=== PATIENT | female | born 1955 | race Caucasian/White ===

== ENCOUNTER 2020-05-02 15:59 | Emergency (ER) | payer OTHER ==
[~2020-05-02] VITALS: Ht 167.6 cm; Wt 82.2 kg
--- NOTE | 2020-05-02 16:21 | NUR ---
MERISSA BALLESTEROS BS FOR EXAM
--- NOTE | 2020-05-02 16:27 | NUR ---
PT A&OX 4, RESP EVEN & UNLABORED, SPEECH CLEAR, SKIN WNL. CARDIAC & VS MONITORING IN PROGRESS: SINUS LORI CURRENTLY. C/O NON-RADIATING CP X 3 WEEKS, WORSE TODAY. DIZZY LAST NOC. DENIES NAUSEA. NO PAIN MED TODAY. LAST ORAL INTAKE: FOOD @ 1300, [employer]. HX PVC, CARDIAC MURMUR.
[2020-05-02] MEDS ORDERED: MAALOX/HYOSCYAMINE/LIDOCAINE 45 ML BTL PO ONE (16:30)
[2020-05-02] MEDS ORDERED: METO25TA35 PO (16:32)
[2020-05-02] MEDS ORDERED: MAALOX/HYOSCYAMINE/LIDOCAINE 45 ML BTL ONE (16:35)
--- NOTE | 2020-05-02 16:36 | NUR ---
GI COCKTAIL GIVEN PER EMAR
[2020-05-02 17:25] VITALS: BP 108/64
[2020-05-02 17:31] LABS: BASOPHILS # (AUTO) 0.03 x10^3/uL (0-0.1); BASOPHILS % (AUTO) 0 % (0-1); EOSINOPHILS # (AUTO) 0.09 x10^3/uL (0-0.4); EOSINOPHILS % (AUTO) 1 % (1-7); LYMPHOCYTES # (AUTO) 1.21 x10^3/uL (1-3.4); LYMPHOCYTES % (AUTO) 17 % (22-44); MD NO; MEAN CORPUSCULAR HGB CONC 34.1 g/dL (32.4-35.8); MEAN PLATELET VOLUME 8.4 fL (7.4-10.4); MONOCYTES % (AUTO) 6 % (2-9); NEUTROPHILS # (AUTO) 5.39 x10^3/uL (1.8-6.8); NEUTROPHILS % (AUTO) 76 % (42-75); PLATELET COUNT 367 x10^3/uL (130-400); RED BLOOD COUNT 4.98 x10^6/uL (3.82-5.3)
[2020-05-02 17:32] LABS: ALANINE AMINOTRANSFERASE 30 U/L (12-78); ALBUMIN 3.9 g/dL (3.4-5.0); ANION GAP 5 mmol/L (5-15); CALCIUM 9.2 mg/dL (8.5-10.1); CHLORIDE 105 mmol/L (98-107); CREATININE 0.95 mg/dL (0.55-1.02)
[2020-05-02 17:36] LABS: ALKALINE PHOSPHATASE 111 U/L (45-117); BILIRUBIN,TOTAL 1.3 mg/dL (0.2-1.0); TOTAL PROTEIN 7.7 g/dL (6.4-8.2); TROPONIN I < 0.015 ng/mL (0.000-0.045)
--- NOTE | 2020-05-02 17:58 | NUR ---
PT ENDORSED TO BREAK RN
== END 2020-05-02 18:22 | disposition home or self-care (01) ==
LOC: ED 16:56
DX: R07.89 Other chest pain (principal); R94.31 Abnormal electrocardiogram [ECG] [EKG]
CPT/HCPCS: 36415; 71045; 80053; 83690; 84484; 85025; 93005; 99285